=== PATIENT | male | born 1950 | race Caucasian/White ===

== ENCOUNTER 2019-12-31 05:51 | Day surgery (SDC) | payer MEDICARE, BC ==
--- OUTSIDE RECORDS SUMMARY | 2019-12-19 10:19 | XMSREPORT | Referral Summary ---
:1950 [facility] [place] [address] Care Team Providers Name Role Phone Kemi Tsang MD Attributed Provider Kemi Tsang MD Primary Care Provider Reason for Referral Transitions of Care (Routine) Status Reason Specialty Diagnoses / Referred By Referred To Procedures Contact Contact New Request Patient Diagnoses [facility], [address] [place], [place] [address] Phone: [place] [address] Fax: Reason for Visit Reason Comments Medication Management colonoscopy referral Encounter Details Date Type Department Care Team Description 12/16/2019 Office Visit [facility] Solomon Easley, CKD (chronic kidney disease) stage 2, GFR 60-89 ml/min (Primary Dx); Clinic Family Donovan piedra MD Dyslipidemia; [address] Screening for colon cancer [place], [place] [address] [place], [place] [phone] [phone] Allergies Active Allergy Reactions Severity Noted Date Comments Food Allergies Edema 05/08/2018 cauliflower Penicillin Rash Shellfish Allergy Nausea ALLERGIC R EACTION: RESPIRATORY PROBLEMS - CAN' T BREATHE documented as of this encounter (statuses as of 12/16/2019) Medications Medication Sig Dispensed Refills Start Date End Date Status aloe vera 25 MG CAPS Take by mouth 0 09/09/2004 Active calcium Take by mouth 0 10/16/2007 Activ e carbonate-vitamin D (CALTRATE 600+D) 600 mg-400 unit tablet Vitamin D3, Take 5,000 Units 0 02/18/2013 Active cholecalciferol, 5000 by mouth UNITS tablet Cranberry-Vitamin Take by mouth 0 08/19/2014 Active C-Vitamin E 4200-20-3 MG-MG-UNIT CAPS capsule cyanocobalamin 1000 MCG Take by mouth 0 10/16/2007 Active TABS Specialty Vitamins Take by mouth 0 10/16/2007 Active Products (ECHINACEA C COMPLETE PO) ibuprofen 3 tablets 0 Active (ADVIL;MOTRIN-IB) 200 mg (600mg) three tablet times per day with food lecithin 400 MG CAPS Take by mouth 0 10/16/2008 Active vitamin E 400 units Take by mouth 0 10/16/2008 Active capsule zinc sulfate (ZINC 15) Take by mouth 0 10/16/2007 Active 66 MG TABS metoprolol succinate Take 0.5 tablets 45 tablet 3 09/06/2018 Active (TOPROL XL) 50 mg SR (25 mg) by mouth tablet (24 1 time per day hr)Indications: Essential hypertension Additional information Patient taking differently: 25 mg Oral Two times a day, Reported on 03/11/2019 1:50 PM triamcinolone acetonide Apply topically 15 g 1 08/29/2019 Active (KENALOG,ARISTOCORT) 0.1 2 times a day % cream tamsulosin (FLOMAX) 0.4 Take 1 capsule 90 capsule 3 09/02/2019 03/2 Active mg capsuleIndications: (0.4 mg) by 01/29 Benign prostatic mouth every 21 hyperplasia with urinary night at bedtime retention finasteride (PROSCAR) 5 Take 1 tablet (5 90 tablet 3 0 /2 Active MG tabletIndications: mg) by mouth 1 8/2 0 Benign prostatic time per day 21 hyperplasia with urinary retention albuterol HFA inhale 2 puffs 3 Inhaler 3 09/04/2019 Active (PROVENTIL,PROAIR,VENTOLI by inhalation N) 108 (90 Base) MCG/ACT route every 4-6 inhalerIndications: Mild hours as needed intermittent asthma without complication pravastatin (PRAVACHOL) Take 1 tablet 90 tablet 3 12/16/2019 Active 20 mg tabletIndications: (20 mg) by mouth Dyslipidemia 1 time per day Due for appointment with lab pravastatin (PRAVACHOL) Take 1 tablet 30 tablet 0 12/05/2019 0 7/0 Discontinued 20 mg tabletIndications: (20 mg) by mouth 11/29 (Reorder) Dyslipidemia 1 time per day 20 Due for appointment with lab documented as of this encounter (statuses as of 12/16/2019) Active Problems Problem Noted Date Benign prostatic hyperplasia with urinary retention Last Assessment & Plan: Patient following for BPH and urethral s tricture. UA suggestive of infection. Will start empiric treatment with Macrobid. May need to adjust antibiotic based on culture and sensitivities. Postvoid res idual was 135 cc. He has been taking Flomax and Finasteride. He is satisfied with h is voiding ability. He feels his stream is stronger than before. He does have sign s of balanitis on the glans penis. Will send script for Lotrisone cream. Follow-up i n 6 months. Stricture of male urethra 09/02/2019 Last Assessment & Plan: Patient was unable to be cath by nurse laney ruiz. Dilation performed to 26 [place] and 18 [place] catheter placed. He'll re turn for voiding trial week of 09-09-2019 CKD (chronic kidney disease) stage 2, GFR 60-89 ml/min 03/29/2018 Essential hypertension 03/29/2018 Dyslipidemia 03/29/2018 Hyperlipidemia 08/24/2015 Chronic constipation 12/26/2011 Hemorrhoids 12/26/2011 Rectal fissure 11/28/2011 Erectile dysfunction 10/26/2010 Hypertension 10/26/2010 Family hx of colon cancer 10/21/2009 Vitamin D deficiency 01/19/2009 Asthma 10/16/2007 Pain in joint, upper arm 10/13/2003 Mixed hyperlipidemia 07/02/2001 documented as of this encounter (statuses as of 12/16/2019) Immunizations Name Administration Dates Next Due Influenza Trivalent w/preserv 03/26/2015, 04/12/2014, 04/02, 04/15/2012, 03/25/2010, 04/26/2005, 04/28/2004, 04/17/2003 FLU VACCINE HIGH DOSE 65YR+(Fluzone) 04/06/2019, 03/25/2018, 04/03/2017, 04/15/2016, 04/12/2015 Influenza Vaccine 6-35mo 03/26/2015, 04/12/2014, 04/02/2013, 04/15/2012, 03/25/2010, 04/26/2005, 04/28/2004, 04/17/2003 Influenza Vaccine,unspecified 04/06/2019, 03/25/2018, 2016, 04/15/2016, 04/12/2015, 04/12/2014, 04/02/2013, 04/15/2012, 03/25/2010, 04/26/2005, 04/28/2004, 04/17/2003 Pneumococcal Conj PCV13 02/29/2016 Pneumococcal Polysaccharide PPSV23 09/06/2018, 10/12/2006 TD(adult)adsorbed 09/04/2017, 04/01/2004 TDAP 10/12/2006 Zoster Recombinant (Shingrix) 2019, 12/26/2018 documented as of this encounter Social History Tobacco Use Types Packs/Day Years Used Date Never Smoker Smokeless Tobacco: Never Used Sex Assigned at Date Recorded Not on file Job Start Date Occupation Industry Not on file Not on file Not on file Travel History Travel Start Travel End No recent travel history available. documented as of this encounter Last Filed Vital Signs Vital Sign Reading Time Taken Comments Blood Pressure 118/74 12/16/2019 2:03 PM CDT Pulse 53 12/16/2019 2:03 PM CDT Temperature 36.4 C (97.6 F) 12/16/2019 2:03 PM CDT Respiratory Rate - - Oxygen Saturation 98% 12/16/2019 2:03 PM CDT Inhaled Oxygen Concentration - - Weight 87.1 kg (192 lb 1.6 oz) 12/16/2019 2:03 PM CDT Height 172.7 cm (5' 8") 12/16/2019 2:03 PM CDT Body Mass Index 29.21 12/16/2019 2:03 PM CDT documented in this encounter Progress Notes Solomon Tsang MD - 12/16/2019 2:32 PM CDT Assessment / Plan CKD (chronic kidney disease) stage 2, GFR 60-89 ml/min - COMPREHENSIVE METABOLIC PANEL; Future Dyslipidemia - pravastatin (PRAVACHOL) 20 mg tablet; Take 1 tablet (20 mg) by mouth 1 time per day Due for appointment with lab Dispense: 90 tablet; Refill: 3 - LIPID PANEL; Future - COMPREHENSIVE METABOLIC PANEL; Future Screening for colon cancer - CLINIC REFERRAL ENDOSCOPY NON ONE CHART Plan: Reviewed his medicationno changes. Pravastatin refilled for the year. Lab pending [facility]oscopy [facility] Medications Outpatient Medications Prior to Visit Medication Sig Dispense Refill albuterol HFA (PROVENTIL,PROAIR,VENTOLIN) 108 (90 Base) MCG/ACT inhaler inhale 2 puffs by inhalation route every 4-6 hours as needed 3 Inhaler 3 tamsulosin (FLOMAX) 0.4 mg capsule Take 1 capsule (0.4 mg) by mouth every night at bedtime 90 capsule 3 finasteride (PROSCAR) 5 MG tablet Take 1 tablet (5 mg) by mouth 1 time per day 90 tablet 3 triamcinolone acetonide (KENALOG,ARISTOCORT) 0.1 % cream Apply topically 2 times a day 15 g 1 metoprolol succinate (TOPROL XL) 50 mg SR tablet (24 hr) Take 0.5 tablets (25 mg) by mouth 1 time per day (Patient taking differently: Take 25 mg by mouth 2 times a day ) 45 tablet 3 aloe vera 25 MG CAPS Take by mouth calcium carbonate-vitamin D (CALTRATE 600+D) 600 mg-400 unit tablet Take by mouth Vitamin D3, cholecalciferol, 5000 UNITS tablet Take 5,000 Units by mouth Cranberry-Vitamin C-Vitamin E 4200-20-3 MG-MG-UNIT CAPS capsule Take by mouth cyanocobalamin 1000 MCG TABS Take by mouth Specialty Vitamins Products (ECHINACEA C COMPLETE PO) Take by mouth ibuprofen (ADVIL;MOTRIN-IB) 200 mg tablet 3 tablets (600mg) three times per day with food lecithin 400 MG CAPS Take by mouth vitamin E 400 units capsule Take by mouth zinc sulfate (ZINC 15) 66 MG TABS Take by mouth pravastatin (PRAVACHOL) 20 mg tablet Take 1 tablet (20 mg) by mouth 1 time per day Due for appointment with lab 30 tablet 0 No facility-administered medications prior to visit. Allergies Allergies Allergen Reactions Penicillin Rash Food Allergies Edema cauliflower Shellfish Allergy Nausea ALLERGIC REACTION: RESPIRATORY PROBLEMS - CAN'T BREATHE Problem List Patient Active Problem List Diagnosis CKD (chronic kidney disease) stage 2, GFR 60-89 ml/min Essential hypertension Dyslipidemia Chronic constipation Pain in joint, upper arm Family hx of colon cancer Hemorrhoids Hyperlipidemia Rectal fissure Asthma Vitamin D deficiency Erectile dysfunction Hypertension Mixed hyperlipidemia Benign prostatic hyperplasia with urinary retention Stricture of male urethra History This gentleman presents today for follow-up of his dyslipidemia and recheck of his lab work after starting pravastatin. He tolerated that much better than he did his simvastatin. He is happy to stay on it. We'll check his lipid and liver tests today. He is also due for renal function assessment given his history of mild chronic kidney disease. He is feeling well otherwise with no chest pain or palpitations or unusual short of breath. He is also due for his five-year colonoscopy Physical Exam BP 118/74 Pulse 53 Temp 97.6 F (36.4 C) (Temporal) Ht 1.727 m (5' 8") Wt 87.1 kg (192 lb 1.6oz) SpO2 98% BMI 29.21 kg/m2|| Heartregular rate and rhythm Lungsclear throughout No lower extremity edema documented in this encounter Plan of Treatment Date Type Specialty Care Team Description 04/08/2020 Office Visit Urology Edin Weller M, [employer] [address] [place], [place] [address] [phone] Name Type Priority Associated Diagnoses Order S chedule LIPID PANEL Lab Routine Dyslipidemia Expected: 12/15 (Approximate), Expires: 2020 COMPREHENSIVE METABOLIC Lab Routine Dyslipid emia Expected: 12/16/2019 PANEL CKD (chronic kidney (Approxi mate), disease) stage 2, GFR s: 01/15/2021 60-89 ml/min Name Type Priority Associated Diagnoses Order S chedule CLINIC REFERRAL Referral Routine Screening for colon Order ed: 12/16/2019 ENDOSCOPY NON ONE CHART cancer documented as of this encounter Visit Diagnoses Diagnosis CKD (chronic kidney disease) stage 2, GF R 60-89 ml/min - Primary Chronic kidney disease, Stage II (mild) Dyslipidemia Other and unspecified hyperlipidemia Screening for colon cancer Special screening for malignant neoplasm s, colon documented in this encounter
[2019-12-31] MEDS: Sodium Chloride 0.9% 1,000 ML IV SCH ×2 (06:26→07:04)
[2019-12-31] MEDS ORDERED: fentaNYL 100 MCG/2 ML SDV ONE (07:18)
[2019-12-31] MEDS ORDERED: Propofol 200 MG/20 ML SDV ONE (07:19)
[2019-12-31] MEDS ORDERED: Midazolam 1 MG/ML 2 ML SDV ONE (07:19)
--- NOTE | 2019-12-31 09:39 | OR ---
DATE OF PROCEDURE: 12/31/2019 SURGEON: Jacques Hilton MD PROCEDURE: Colonoscopy. FINDINGS: Normal colonoscopy. PREOPERATIVE DIAGNOSIS: Family history of colorectal cancer. POSTOPERATIVE DIAGNOSIS: Family history of colorectal cancer. RISKS: Risks, benefits, alternatives, and limitations including, but not limited to infection, bleeding, and perforation were explained to the patient, who wished to proceed. PROCEDURE IN DETAIL: The patient was placed in left lateral decubitus position. Digital rectal exam was performed without abnormality. Scope was introduced and advanced atraumatically to the ileocecal valve. A photo was taken of this. Scope was brought back through the ascending, transverse, descending colon, and retroflexed. No evidence of old or new blood. No masses. No polyps. No diverticulosis. No abnormalities on retroflexion. The patient tolerated the procedure well. Jacques Hilton MD /[id number]
== END 2019-12-31 10:00 | disposition home or self-care (01) ==
LOC: JP.SDS 05:51
PROVIDERS: ATTEND Surgery
DX: Z12.11 Encounter for screening for malignant neoplasm of colon (principal); J45.909 Unspecified asthma, uncomplicated; E78.5 Hyperlipidemia, unspecified; I12.9 Hypertensive chronic kidney disease with stage 1 through stage 4 chronic kidney disease, or unspecified chronic kidney disease; N18.2 Chronic kidney disease, stage 2 (mild); Z80.0 Family history of malignant neoplasm of digestive organs
CPT/HCPCS: G0105; J2250; J2704; J3010; J7030

== ENCOUNTER 2024-02-12 18:12 | Emergency (ER) | payer MEDICARE, BC | END 2024-02-12 18:56 | disposition home or self-care (01) | LOC: JP.ED 18:12 | DX: L50.9 Urticaria, unspecified (principal); I10 Essential (primary) hypertension; E78.00 Pure hypercholesterolemia, unspecified; J45.909 Unspecified asthma, uncomplicated; Z79.899 Other long term (current) drug therapy | CPT/HCPCS: 99282; 99283 ==

== ENCOUNTER 2025-01-24 06:59 | Day surgery (SDC) | payer MEDICARE, BC ==
[2025-01-24] MEDS ORDERED: Propofol 200 MG/20 ML SDV ONE (07:13)
[2025-01-24] MEDS ORDERED: fentaNYL 100 MCG/2 ML SDV ONE (07:13)
[2025-01-24] MEDS: Lactated Ringers 1,000 ML IV SCH (07:51)
== END 2025-01-24 10:54 | disposition home or self-care (01) ==
LOC: JP.SDS 06:59
PROVIDERS: ATTEND Family Medicine
DX: Z12.11 Encounter for screening for malignant neoplasm of colon (principal); D12.0 Benign neoplasm of cecum; K64.8 Other hemorrhoids; I12.9 Hypertensive chronic kidney disease with stage 1 through stage 4 chronic kidney disease, or unspecified chronic kidney disease; N18.2 Chronic kidney disease, stage 2 (mild); Z88.0 Allergy status to penicillin; Z91.013 Allergy to seafood
CPT/HCPCS: 00811; 45380; J2704; J3010; J7120